=== PATIENT | male | born 1980 | race Caucasian/White ===

== ENCOUNTER 2018-11-25 15:08 | Emergency (ER) | payer OTHER ==
[~2018-11-25 15:08] MED LIST: AMOX-362 PO; CEPH-13 PO; CYCL10TA29 PO; FEXO-72 PO; HYDR-653 PO; IBUP800T37 PO; KET10 PO; LEVO750T44 PO; LOR5/325 PO; MOTRIN; OMEP40CA48 PO; ONDA4TAB PO; PER PO; SUCR1TAB85 PO
--- NOTE | 2018-11-25 15:20 | ER Report ---
History and Physical Time Seen By MD: 15:16 Hx. of Stated Complaint: WORSENING CHRONIC LOW BACK PAIN. HPI/ROS CHIEF COMPLAINT: Chronic low back pain HISTORY OF PRESENT ILLNESS: This is a 38-year-old male who presents to the emergency department for low back pain. Patient states that he was doing PT for [employer] about 2 weeks ago, during the syrup portion developed some lower back pain, began to improve as his taken Aleve on a daily basis as well as resting, then yesterday he states he was getting out of bed and developed increased lower back pain increasing today with limited range of motion, he has a history of a laminectomy and [facility], has a follow-up appointment scheduled for this coming Friday, however they suggested coming to the ER for evaluation as the pain has increased and his range of motion has decreased. He does have some intermittent radiation down the right posterior leg, this is not unusual. He denies fevers or chills. No nausea or vomiting. No loss of bowel or bladder. No urinary retention. No other complaints at this time. REVIEW OF SYSTEMS: Respiratory: No cough, no dyspnea. Cardiovascular: No chest pain, no palpitations. Gastrointestinal: No vomiting, no abdominal pain. Musculoskeletal: As above. Allergies: Coded Allergies: No Known Drug Allergies (Unverified , 11/25/18) Home Meds Active Scripts Cyclobenzaprine Hcl (CYCLOBENZAPRINE HCL) 10 Mg Tablet, 5-10 MG PO TID PRN for MUSCLE SPASMS, #12 TAB Prov:NIKKI COSTA [facility]- 11/25/18 Discontinued Reported Medications Fexofenadine Hcl (YAMINI ALLERGY) 60 Mg Tablet, 60 MG PO BID 08/15/17 Discontinued Scripts Ibuprofen (IBUPROFEN) 800 Mg Tablet, 1 TAB PO Q8H, #20 TAB Prov:NIKKI COSTA [facility] 08/15/17 Cyclobenzaprine Hcl (CYCLOBENZAPRINE HCL) 10 Mg Tablet, 5-10 MG PO TID PRN for MUSCLE SPASMS, #9 TAB Prov:NIKKI COSTA [facility]- 08/15/17 Past Medical/Surgical History The patient has a past medical and surgical history of headaches, H. pylori, GERD,, diabetes, cholecystectomy, wears glasses, hernia repair, left little finger tendon repair, discectomy, laminectomy, septoplasty. Reviewed Nurses Notes: Yes Hx Smoking: No Smoking Status: Never Smoker Hx Substance Use Disorder: No Hx Alcohol Use: Yes Constitutional Vital Sign - Last 24 Hours 11/25/18 11/25/18 15:12 16:46 Temp 97.6 Pulse 68 68 Resp 20 16 B/P (MAP) 241/90 121/82 (95) Pulse Ox 98 95 O2 Delivery Room Air Room Air Physical Exam General Appearance: The patient is alert, has no immediate need for airway protection and no current signs of toxicity. Eyes: Pupils equal and round no injection. Respiratory: Chest is non tender, lungs are clear to auscultation. Cardiac: regular rate and rhythm, no murmurs, clicks or rubs. Gastrointestinal: Abdomen is soft and non tender, no masses, bowel sounds normal. Musculoskeletal: Neck: Neck is supple and non tender. Mild lumbar pain with palpation, no deformities, crepitus or bruising identified. There is a small surgical scar. Extremities have full range of motion and are non tender. Skin: No rashes or lesions. DIFFERENTIAL DIAGNOSIS: After history and physical exam differential diagnosis was considered for back pain including but not limited to muscular pain, herniated disc, spine fracture, intra-abdominal causes and urinary tract infection. Medical Decision Making EKG/Imaging Imaging Location: [facility] Patient: Robin Santiago : 1980 Visit/Account:[id number] Date of Sevice: 11/25/2018 Exam type: L-SPINE >4 VIEWS History: recurrent low back pain, exacerbated after situps Comparison: August 15, 2017. Findings: There are five nonrib-bearing lumbar-type vertebral bodies present. There is straightening of normal lumbar lordosis which may be related to muscle spasm. There is no evidence of acute fracture or subluxation Disc space narrowing at L5-S1 appears similar to the prior study. There are surgical clips in the right upper quadrant of abdomen IMPRESSION: 1. Disc space narrowing at L5-S1 appears similar to the prior study There is straightening of normal lumbar lordosis which may be related to muscle spasm. Report Dictated By: Ernestina Herndon MD at 11/25/2018 4:15 PM Report E-Signed By: Ernestina Herndon MD at 11/25/2018 4:18 PM WSN:[email or web address] ED Course/Re-evaluation ED Course The patient was admitted to room. A history and physical were obtained. Differential diagnoses were considered. An x-ray of the lumbar spine was negative for any acute osseous abnormalities. Patient was given 60 mg IM Norflex with mild relief. I did review the results with the patient. I did recommend following up with physical therapy, he does have [facility], I also recommended following up with Dr. Vo if the [facility] will be agreeable to transfer care over. Patient was given a prescription for Flexeril, instructed to take NSAIDs in addition to the most relaxer, patient was in agreement with this plan of care and discharged home. Decision to Disposition Date: Nov 25, 2018 Decision to Disposition Time: 16:33 Depart Departure Latest Vital Signs Vital Signs Date Time Temp Pulse Resp B/P (MAP) Pulse Ox O2 Delivery O2 Flow Rate FiO2 11/25/18 16:46 68 16 121/82 (95) 95 Room Air 11/25/18 15:12 97.6 Impression: Primary Impression: Lower back pain Condition: Improved Disposition: HOME OR SELF-CARE Referrals: ANN MARIE VO MD New Scripts Cyclobenzaprine Hcl (CYCLOBENZAPRINE HCL) 10 Mg Tablet 5-10 MG PO TID PRN for MUSCLE SPASMS, #12 TAB Prov: NIKKI COSTA 11/25/18 Patient Instructions: Acute Low Back Pain (ED), Lower Back Exercises (ED) Additional Instructions: Take the flexeril as prescribed. Continue taking Aleve as needed for pain. Keep your follow up appointment [facility] the [facility]. Talk with the [facility] to see if they will refer you to Dr. Vo at [facility]. Drink plenty of water. Get plenty of rest. Follow up with Physical Therapy. Return to the ED for any other concerns or worsening symptoms. Problem Qualifiers Primary Impression: Lower back pain Chronicity: unspecified Back pain laterality: midline Sciatica presence: unspecified whether sciatica present Qualified Codes: M54.5 - Low back pain NIKKI COSTA [employer] Nov 25, 2018 15:20
[2018-11-25] MEDS ORDERED: ORPHENADRINE 60MG/2ML INJ IM ONE (15:30)
--- NOTE | 2018-11-25 16:23 | RADIOLOGY IMAGING REPORT ---
FACILITY: [facility] PATIENT NAME: Robin Santiago : 1980 MR: [id number] V: [id number] EXAM DATE: ORDERING PHYSICIAN: NIKKI COSTA TECHNOLOGIST: Location: [facility] Patient: Robin Santiago : 1980 Visit/Account:[id number] Date of Sevice: 11/25/2018 Exam type: L-SPINE >4 VIEWS History: recurrent low back pain, exacerbated after situps Comparison: August 15, 2017. Findings: There are five nonrib-bearing lumbar-type vertebral bodies present. There is straightening of normal lumbar lordosis which may be related to muscle spasm. There is no evidence of acute fracture or sub luxation Disc space narrowing at L5-S1 appears similar to the prior study. There are surgical clips in the right upper quadrant of abdomen IMPRESSION: 1. Disc space narrowing at L5-S1 appears similar to the prior study There is straightening of normal lumbar lordosis which may be related to muscle spasm. Report Dictated By: Ernestina Herndon MD at 11/25/2018 4:15 PM Report E-Signed By: Ernestina Herndon MD at 11/25/2018 4:18 PM WSN:[email or web address]
[2018-11-25] MEDS ORDERED: CYCL10TA29 PO (16:39)
[2018-11-25 16:46] VITALS: BP 121/82
== END 2018-11-25 16:47 | disposition home or self-care (01) ==
LOC: ER 15:46
DX: M54.5 Low back pain (principal)
CPT/HCPCS: 72120; 96372; 99283; J2360

== ENCOUNTER → 2018-12-28 | Outpatient (CLI) | payer OTHER ==
[~2018-12-28] MED LIST changes: +GADOBENATE 529MG/1ML 15ML VIAL IVP ONE
--- NOTE | 2018-12-28 15:46 | RADIOLOGY IMAGING REPORT ---
[place] [facility] [place] NAME: Robin Santiago : 1980 MR: [id number] V: [id number] EXAM DATE: ORDERING PHYSICIAN: CHRYSTAL TORRES TECHNOLOGIST: Location: [facility] Patient: Robin Santiago : 1980 Visit/Account:[id number] Date of Sevice: 12/28/2018 EXAMINATION: MRI lumbar spine without IV contrast MRI lumbar spine with IV contrast HISTORY: Left lumbar radiculopathy. L5-S1 laminectomy 2011. COMPARISON: Lumbar spine MRI from 10/23/2011 and lumbar spine radiographs from 11/25/2018. TECHNIQUE: Multi-planar, multi-sequence lumbar spine MRI was performed before and after IV contrast. CONTRAST: 15 mL of IV MultiHance gadolinium. FINDINGS: Alignment: Normal. Vertebral marrow signal: Mild marrow edema of the L5-S1 endplates. Distal thoracic cord: Negative. Conus: negative, terminates at L1-2. Cauda equina: Negative. Paravertebral soft tissues: Negative. Visualized abdominal and pelvic structures: Negative. Enhancement pattern: See description of enhancement below. Disc spaces: Lower thoracic spine: Normal. L1-2: Normal. L2-3: Normal. L3-4: Normal. L4-5: The disc is normal. Mild bilateral facet hypertrophy without significant central canal or miko inal stenosis. L5-S1: Right L5 laminotomy. Disc space narrowing and desiccation with a rim-enhancing, broad-based di sc extrusion eccentric to the right. There is severe right lateral recess stenosis with mass effect o n the transiting right S1 nerve root. Mild right foraminal stenosis without significant central canal stenosis. There is mild edema and enhancement of the right S1 nerve root. IMPRESSION: 1. Broad-based disc extrusion eccentric to the right at L5-S1 causes severe right lateral recess sten osis with mass effect on the transiting right S1 nerve root. 2. Mild edema of the right S1 nerve root. 3. Previous right L5 laminotomy. Report Dictated By: Shirley Bernstein MD at 12/28/2018 3:29 PM Report E-Signed By: Shirley Bernstein MD at 12/28/2018 3:42 PM WSN:[email or web address]
== END ==
LOC: MRI 13:48
PROVIDERS: ATTEND Family Medicine
DX: M48.061 Spinal stenosis, lumbar region without neurogenic claudication (principal); Z98.890 Other specified postprocedural states
CPT/HCPCS: 72158; A9577